=== PATIENT | female | born 1945 | race Caucasian/White ===

== ENCOUNTER 2016-11-17 13:19 | Outpatient (CLI) | payer OTHER ==
--- NOTE | 2016-11-17 14:07 | DIAGNOSTIC IMAGING REPORT ---
PROCEDURE: MG BILATERAL SCREENING W/CAD INDICATION: SCREENING TECHNIQUE: Bilateral CC and MLO digital views. COMPARISON: Compared to 11/13/2014, 11/13/2013, and 11/11/2012. FINDINGS: Computer-aided detection applied. Moderately dense with a few dystrophic calcifications. No change. IMPRESSION: 1. Negative mammogram. RESULT CODE: 1- Negative. A. A negative report should not delay biopsy if a dominant or clinically suspicious mass is present. 10-15% of cancers are not identified by x-ray. B. A negative report may reinforce clinical impression. C. Adenosis and dense breasts may obscure an underlying neoplasm. D. False positive reports average 6-10%. E.. A yearly screening mammogram is recommended. A reminder letter will be scheduled.
== END 2016-11-17 23:00 ==
LOC: MAM SRH 13:19
DX: Z12.31 Encounter for screening mammogram for malignant neoplasm of breast (principal)

== ENCOUNTER 2017-01-27 08:52 | Outpatient (CLI) | payer OTHER ==
--- NOTE | 2017-01-27 10:26 | DIAGNOSTIC IMAGING REPORT ---
PROCEDURE: XR KNEE 3 VIEWS BILATERAL INDICATION: DJD,KNEES TECHNIQUE: Three views of each knee. COMPARISON: None. FINDINGS: Osteopenia. Otherwise normal bones and joint spaces. No effusions. IMPRESSION: 1. Osteopenia.
== END 2017-01-27 23:00 ==
LOC: XR SRH 08:52
DX: M85.862 Other specified disorders of bone density and structure, left lower leg (principal); M85.861 Other specified disorders of bone density and structure, right lower leg